=== PATIENT | female | born 1990 | race African-American/Black ===

== ENCOUNTER 2017-08-05 01:36 | Inpatient (IN) | payer OTHER ==
[2017-08-05] MEDS ORDERED: OXYTOCIN 10 UNITS/ML VIAL IM ONE (01:55)
[2017-08-05] MEDS ORDERED: IBUPROFEN 600 MG TABLET (FP) PO ONE (02:18)
[2017-08-05] MEDS ORDERED: ACETAMINOPHEN 325 MG TABLET (FP) ONE (02:19)
--- NOTE | 2017-08-05 02:19 | HP ---
Past Medical History - Admission History of Present Illness: 26 yo @ 39 wks presented with chief complaint of contractions uncomplicated per patient She reports contractions began at 2000 last night, increased in intensity and frequency. She reports movement, denies leakage of fluid or vaginal bleeding . History Source: Patient Limitations to Obtaining History: No Limitations - Past Medical History Cardiovascular: No: HTN Pulmonary: No: Asthma ...: 2 ...Para: 1 Heme/Onc: No: Anemia - Past Surgical History Hx Myomectomy: No Hx Transabdominal Cerclage: No Additional Surgical History: gastric sleeve - Smoking History Have you smoked in the past 12 months: No - Alcohol/Substance Use Hx Alcohol Use: No History of Substance Use: reports: None - Social History History of Recent Travel: No Family Disease History - Family Disease History Family History: Denies Review of Systems - Review of Systems Constitutional: reports: No Symptoms Eyes: reports: No Symptoms HENT: reports: No Symptoms Neck: reports: No Symptoms Cardiovascular: reports: No Symptoms Respiratory: reports: No Symptoms Gastrointestinal: reports: No Symptoms Genitourinary: reports: No Symptoms Musculoskeletal: reports: No Symptoms Integumentary: reports: No Symptoms Neurological: reports: No Symptoms Endocrine: reports: No Symptoms Hematology/Lymphatic: reports: No Symptoms Psychiatric: reports: No Symptoms Physical Exam - Maternity Constitutional: Yes: Well Nourished, No Distress, Calm Cardiovascular: Yes: Regular Rate and Rhythm Lungs: Clear to auscultation - Abdominal Exam/OB Number of Fetuses: Single Presentation: Vertex Contractions: Yes Regularity: Regular Intensity: Mod/Strong Category: I Accelerations: Non-Uniform Decelerations: None - Vaginal Exam/OB Dilatation (cm): 10 - Physical Exam Psychiatric: Yes: Alert, Oriented Hemorrhage Risk Assessment - Risk Factors Medium Risk Factors: Yes: None High Risk Factors: Yes: None Risk Score: 1 Risk Level: Medium Risk Assessment/Plan 26 yo , active labor 1. Consents reviewed and signed 2. GBS negative per patient 3. Will send admission labs 4. Will proceed with expectant management
--- NOTE | 2017-08-05 02:20 | PN ---
Delivery - Delivery Vaginal Delivery: No Problems Type of Anesthesia: None Episiotomy/Laceration: None EBL (cc): 200 Delivery, Single - Stages of Labor Date 1st Stage Initiatied: 08/04/17 Time 1st Stage Initiated: 20:00 Date 2nd Stage Initiated: 08/05/17 Time 2nd Stage Initiated: 01:45 Date of Delivery: 08/05/17 Time of Delivery: 01:50 Date Placenta Delivered: 08/05/17 Time Placenta Delivered: 01:55 Placenta: Yes: Spontaneous - Condition of Gender: Male Position: OA - 1 Minute Total Score: 9 5 Minutes Total Score: 9 Remarks - Remarks Remarks: Patient progressed to fully dilated and at 0150 via delivered a viable male infant in direct OA position, APGARs 9,9. Weight and length unknown at this time. Head delivered spontaneously. Nuchal cord noted and shoulder and body delivered through without difficulty. Infant with spontaneous cry and placed on mother's abdomen. Nose and mouth was bulb suctioned. Cord was clamped and cut. Perineum and vagina examined, no lacerations were noted. Placenta was delivered spontaneously and intact. 10 units of pitocin IM was given. All counts correct x 2. Mother and infant stable in LDR. EBL 200cc.
[2017-08-05] MEDS: ACETAMINOPHEN 325 MG TABLET (FP) PO PRN ×5 (02:30→21:53)
[2017-08-05] MEDS: IBUPROFEN 600 MG TABLET (FP) PO PRN ×5 (02:30→21:53)
[2017-08-05] MEDS ORDERED: BISACODYL 10 MG SUPP.RECT RC PRN (02:46)
[2017-08-05] MEDS ORDERED: BENZOCAINE 20% 57 GM BOTTLE TP PRN (02:46)
[2017-08-05] MEDS ORDERED: METHYLERGONOVINE MALEATE 0.2 MG/1 ML AMP IM PRN (02:46)
[2017-08-05] MEDS ORDERED: WITCH HAZEL 50% (TUCKS) 40 PAD/JAR PAD TP PRN (02:46)
[2017-08-05] MEDS ORDERED: BENZOCAINE 28 GM HEMORRHOIDAL OINTMENT TP PRN (02:46)
[2017-08-05 02:59] VITALS: BMI 23.5
[2017-08-05] MEDS ORDERED: OXYTOCIN 20 UNITS in 0.9% NS 20 UNIT/1,000 ML INFUS.BAG IV SCH (03:00)
[2017-08-05 03:03] LABS: BASO % 0.1 % (0-2.0); EOS % 0.2 % (0-4.5); HEMATOCRIT 38.4 % (32.4-45.2); HEMOGLOBIN 13.1 GM/dL (10.7-15.3); LYMPH % 21.3 % (8-40); MCH 32.9 pg (25.7-33.7); MCHC 34.2 g/dl (32.0-36.0); MEAN CELL VOLUME 96.2 fl (80-96); MEAN PLT VOLUME 9.6 fl (7.5-11.1); NEUT % 72.4 % (42.8-82.8); PLATELET COUNT 212 K/MM3 (134-434); RBC 3.99 M/mm3 (3.60-5.2); RDW 14.5 % (11.6-15.6); WHITE BLOOD COUNT 14.1 K/mm3 (4.0-10.0)
[2017-08-05 03:15] LABS: INR 0.95 (0.82-1.09); PROTHROMBIN TIME (PATIENT) 10.7 SEC (9.98-11.88)
[2017-08-05 03:18] LABS: ACTIVATED PTT 26.9 SECONDS (26.9-34.4)
[2017-08-05 04:10] LABS: ANION GAP 17 (8-16); BLOOD UREA NITROGEN 11 mg/dL (7-18); CALCIUM 8.6 mg/dL (8.5-10.1); CHLORIDE 101 mmol/L (98-107); CO2 20 mmol/L (21-32); CREATININE 0.8 mg/dL (0.55-1.02); GLUCOSE,RANDOM 86 mg/dL (74-106); POTASSIUM 3.9 mmol/L (3.5-5.1); SODIUM 138 mmol/L (136-145)
[2017-08-05] MEDS ORDERED: TUBERCULIN PPD 5 TU/0.1ML SYRINGE (IN PATIENT USE ONLY) ID ONE (08:00)
--- NOTE | 2017-08-05 11:03 | PN ---
Post Progress Note - Subjective Subjective: PT seen/evaluated and doing well. Pain controlled, tolerating diet, ambulating , voiding, passing flatus. no CP/SOB/F/C/KENNY. Type of Delivery: Vital Signs: Vital Signs Temperature 97.7 F 08/05/17 08:29 Pulse Rate 71 08/05/17 08:29 Respiratory Rate 18 08/05/17 08:29 Blood Pressure 105/47 08/05/17 08:29 O2 Sat by Pulse Oximetry (%) 100 08/05/17 03:30 Breast Exam: Yes: Soft Uterus: Yes: Fundus Firm, Fundus @ umbilicus Abdomen/GI: Yes: Abdomen soft, Other Lochia: Yes: Rubra Lochia, amount: Small Extremities: Yes: Calves non-tender. No: Edema Perineum: Yes: Intact Activity: Ambulating - Labs Labs: CBC WBC 14.1 K/mm3 (4.0-10.0) H 08/05/17 02:30 RBC 3.99 M/mm3 (3.60-5.2) D 08/05/17 02:30 Hgb 13.1 GM/dL (10.7-15.3) D 08/05/17 02:30 Hct 38.4 % (32.4-45.2) D 08/05/17 02:30 MCV 96.2 fl (80-96) H 08/05/17 02:30 MCH 32.9 pg (25.7-33.7) 08/05/17 02:30 MCHC 34.2 g/dl (32.0-36.0) 08/05/17 02:30 RDW 14.5 % (11.6-15.6) 08/05/17 02:30 Plt Count 212 K/MM3 (134-434) 08/05/17 02:30 MPV 9.6 fl (7.5-11.1) 08/05/17 02:30 Neutrophils % 72.4 % (42.8-82.8) 08/05/17 02:30 Lymphocytes % 21.3 % (8-40) D 08/05/17 02:30 Monocytes % 6.0 % (3.8-10.2) 08/05/17 02:30 Eosinophils % 0.2 % (0-4.5) 08/05/17 02:30 Basophils % 0.1 % (0-2.0) 08/05/17 02:30 Problem List - Problems (1) Vaginal delivery Code(s): O80 - ENCOUNTER FOR FULL-TERM UNCOMPLICATED DELIVERY Assessment/Plan PPD#0 s/p normal - AFVSS - Hgb 13.1 - regular diet, PO pain meds - routine care
[2017-08-06] MEDS: ACETAMINOPHEN 325 MG TABLET (FP) PO PRN ×4 (02:07→23:07)
[2017-08-06] MEDS: IBUPROFEN 600 MG TABLET (FP) PO PRN ×4 (02:08→23:07)
--- NOTE | 2017-08-06 08:39 | PN ---
Post Progress Note - Subjective Subjective: Pt seen/evaluated and doing well. Pain controlled, tolerating regular diet. Ambulating, voiding, passing flatus, VB minimal. Type of Delivery: Vital Signs: Vital Signs Temperature 97.7 F 08/06/17 08:03 Pulse Rate 60 08/06/17 08:03 Respiratory Rate 18 08/06/17 08:03 Blood Pressure 115/60 08/06/17 08:03 O2 Sat by Pulse Oximetry (%) 100 08/05/17 03:30 Uterus: Yes: Fundus Firm, Fundus below umbilicus Abdomen/GI: Yes: Abdomen soft, Passing flatus, Tolerating PO. No: Tender Lochia: Yes: Rubra Lochia, amount: Small Extremities: Yes: Calves non-tender. No: Edema Perineum: Yes: Intact Activity: Ambulating - Labs Labs: CBC WBC 14.1 K/mm3 (4.0-10.0) H 08/05/17 02:30 RBC 3.99 M/mm3 (3.60-5.2) D 08/05/17 02:30 Hgb 13.1 GM/dL (10.7-15.3) D 08/05/17 02:30 Hct 38.4 % (32.4-45.2) D 08/05/17 02:30 MCV 96.2 fl (80-96) H 08/05/17 02:30 MCH 32.9 pg (25.7-33.7) 08/05/17 02:30 MCHC 34.2 g/dl (32.0-36.0) 08/05/17 02:30 RDW 14.5 % (11.6-15.6) 08/05/17 02:30 Plt Count 212 K/MM3 (134-434) 08/05/17 02:30 MPV 9.6 fl (7.5-11.1) 08/05/17 02:30 Neutrophils % 72.4 % (42.8-82.8) 08/05/17 02:30 Lymphocytes % 21.3 % (8-40) D 08/05/17 02:30 Monocytes % 6.0 % (3.8-10.2) 08/05/17 02:30 Eosinophils % 0.2 % (0-4.5) 08/05/17 02:30 Basophils % 0.1 % (0-2.0) 08/05/17 02:30 Problem List - Problems (1) Vaginal delivery Code(s): O80 - ENCOUNTER FOR FULL-TERM UNCOMPLICATED DELIVERY Assessment/Plan PPD#1 s/p normal - AFVSS - Hgb/Hct pending for today - regular diet, PO pain meds - routine care
[2017-08-06 08:47] LABS: BASO % 0.1 % (0-2.0); EOS % 0.8 % (0-4.5); HEMATOCRIT 31.8 % (32.4-45.2); HEMOGLOBIN 10.9 GM/dL (10.7-15.3); LYMPH % 26.8 % (8-40); MCH 32.5 pg (25.7-33.7); MCHC 34.4 g/dl (32.0-36.0); MEAN CELL VOLUME 94.4 fl (80-96); NEUT % 65.3 % (42.8-82.8); PLATELET COUNT 175 K/MM3 (134-434); RBC 3.37 M/mm3 (3.60-5.2); RDW 14.2 % (11.6-15.6); WHITE BLOOD COUNT 13.4 K/mm3 (4.0-10.0)
--- NOTE | 2017-08-06 09:13 | DS ---
Physical Exam-[employer] Vital Signs: Vital Signs Temperature 97.7 F 08/06/17 08:03 Pulse Rate 60 08/06/17 08:03 Respiratory Rate 18 08/06/17 08:03 Blood Pressure 115/60 08/06/17 08:03 O2 Sat by Pulse Oximetry (%) 100 08/05/17 03:30 Constitutional: Yes: Well Nourished, No Distress, Calm Eyes: Yes: Conjunctiva Clear, EOM Intact HENT: Yes: Atraumatic, Normocephalic Neck: Yes: Supple, Trachea Midline Cardiovascular: Yes: Regular Rate and Rhythm Respiratory: Yes: Regular, CTA Bilaterally Gastrointestinal: Yes: Normal Bowel Sounds, Soft Uterus: Yes: Normal Extremities: Yes: WNL Psychiatric: Yes: Alert, Oriented Labs: CBC, BMP 08/06/17 07:00 08/05/17 02:30 Delivery - Delivery Vaginal Delivery: No Problems Type of Anesthesia: None Episiotomy/Laceration: None EBL (cc): 300 Delivery, Single - Stages of Labor Date 1st Stage Initiatied: 08/04/17 Time 1st Stage Initiated: 20:00 Date 2nd Stage Initiated: 08/05/17 Time 2nd Stage Initiated: 01:45 Date of Delivery: 08/05/17 Time of Delivery: 01:50 Time Placenta Delivered: 01:55 Placenta: Yes: Spontaneous - 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 - Instructions Diet, Activity, Other Instructions: Physical activity Resume your normal everyday activity as tolerated no heavy lifting or exercise until seen by your doctor. You may walk unlimited amounts and climb stairs. You may resume driving the car when you feel safe and comfortable behind the wheel. No sexual activity as instructed. You may shower daily, no soaking in tubs/ baths/pools until cleared by your doctor. Diet There are no dietary restrictions. Eat healthy, high-fiber foods. Drink 6 to 8 glasses of liquid each day. This will assist in keeping your bowels regular. Pain management You may take Tylenol or Ibuprofen (for example, Motrin, Advil etc.) as needed for pain. Call MD for any of the following: Severe pain not relieved by medication Fever of 101 or higher Excessive bleeding or drainage on dressing Inability to urinate - Home Medications Comprehensive Discharge Medication List: Ambulatory Orders Vit 108/Iron/Folic AC [ One Tablet] 1 each PO DAILY 08/05/17
[2017-08-06] MEDS ORDERED: DIPHTH,PERTUSS(ACELL),TET 0.5 ML DISP.SYRIN IM ONE (10:00)
[2017-08-06] MEDS ORDERED: SENNOSIDES/DOCUSATE COMBO (SENNA PLUS) TABLET (UD) PO PRN (22:00)
[2017-08-07] MEDS: ACETAMINOPHEN 325 MG TABLET (FP) PO PRN ×2 (04:29→10:02)
[2017-08-07] MEDS: IBUPROFEN 600 MG TABLET (FP) PO PRN ×2 (04:29→10:03)
[2017-08-07 11:15] VITALS: BP 102/56; PULSE 54; TEMP 97.8
== END 2017-08-07 13:16 | disposition home or self-care (01) | DRG 775 ==
LOC: JLDR 01:36 → J3W 04:45
PROVIDERS: ADMIT Obstetrics & Gynecology; ATTEND Obstetrics & Gynecology
PROC: 10E0XZZ Delivery of Products of Conception, External Approach (ICD-10-PCS; principal; 2017-08-05)
DX: O80 Encounter for full-term uncomplicated delivery (principal); Z3A.39 39 weeks gestation of pregnancy; Z37.0 Single live birth
CPT/HCPCS: 36415; 59409; 80048; 85025; 85610; 85730; 86593; 86850; 86900; 86901